=== PATIENT | female | born 1965 | race Hispanic/Latino ===

== ENCOUNTER 2021-01-03 14:43 | Emergency (ER) | payer SELFPAY ==
[~2021-01-03] VITALS: Ht 154.9 cm; Wt 95.3 kg
[2021-01-03 15:11] LABS: BASOPHILS % (AUTO) 0.7 % (0.0-5.0); EOSINOPHILS % (AUTO) 1.9 % (0.0-8.0); HEMATOCRIT 40.2 % (36-48); LYMPHOCYTES % (AUTO) 25.9 % (21.0-51.0); MEAN CORPUSCULAR HEMOGLOBIN 29.7 pg (27.0-33.0); MEAN CORPUSCULAR HGB CONC 32.3 g/dL (32.0-36.0); MONOCYTES % (AUTO) 8.6 % (3.0-13.0); NEUTROPHILS % (AUTO) 62.2 % (40.0-77.0); PLATELET COUNT (AUTO) 266 K/uL (130-400); RED BLOOD CELL COUNT(AUTO) 4.37 MIL/uL (4.00-5.50); RED CELL DISTRIBUTION WIDTH 13.3 % (11.0-15.5); WHITE BLOOD COUNT (AUTO) 13.4 K/uL (4.8-10.8)
[2021-01-03 15:25] LABS: CREATININE 0.8 mg/dL (0.5-1.5); POTASSIUM 3.7 mmol/L (3.5-5.1)
[2021-01-03 15:29] LABS: ALBUMIN 3.5 g/dL (3.5-5.0); BILIRUBIN,TOTAL 0.2 mg/dL (0.2-1.0); TOTAL PROTEIN, SERUM 7.3 g/dL (6.0-8.3)
[2021-01-03] MEDS ORDERED: MECLIZINE HCL 25 MG TABLET PO ONE (15:30)
[2021-01-03] MEDS ORDERED: MECL-226 PO (15:50)
[2021-01-03] MEDS ORDERED: CORTSUSP OT (16:06)
[2021-01-03 16:29] VITALS: BP 136/67
== END 2021-01-03 16:30 | disposition home or self-care (01) ==
LOC: EDH 15:05
DX: H81.393 Other peripheral vertigo, bilateral (principal); Z98.890 Other specified postprocedural states; H66.92 Otitis media, unspecified, left ear; Z79.899 Other long term (current) drug therapy
CPT/HCPCS: 36415; 70450; 80053; 85025

== ENCOUNTER 2021-10-15 15:49 | Emergency (ER) | payer OTHER ==
[~2021-10-15] VITALS: Ht 154.9 cm; Wt 99.1 kg
[~2021-10-15 15:49] MED LIST: CORTSUSP OT; MECL-226 PO
[2021-10-15 15:55] VITALS: BP 130/63
[2021-10-15] MEDS ORDERED: HYDROCODONE/ACETAMINOPHEN 5/325 MG TAB PO ONE (16:00)
[2021-10-15] MEDS ORDERED: ACET-2247 PO (17:36)
== END 2021-10-15 17:47 | disposition home or self-care (01) ==
LOC: EDH 15:49
DX: M25.552 Pain in left hip (principal); M79.605 Pain in left leg; E11.9 Type 2 diabetes mellitus without complications; Z98.890 Other specified postprocedural states; Z90.49 Acquired absence of other specified parts of digestive tract; Z79.899 Other long term (current) drug therapy
CPT/HCPCS: 73502; 93971

== ENCOUNTER 2023-02-05 10:17 | Emergency (ER) | payer OTHER ==
[~2023-02-05] VITALS: Ht 154.9 cm; Wt 90.7 kg
[~2023-02-05 10:17] MED LIST changes: +ACET-2247 PO
[2023-02-05 10:54] VITALS: O2SAT 99
[2023-02-05] MEDS ORDERED: CLOT15CR5 TP (12:03)
[2023-02-05] MEDS ORDERED: TERB250T89 PO (12:03)
[2023-02-05] MEDS ORDERED: METF-445 PO (12:11)
[2023-02-05 12:36] VITALS: BP 128/66; PULSE 65; RESP 17
== END 2023-02-05 12:42 | disposition home or self-care (01) ==
LOC: EDH 10:17
DX: B35.3 Tinea pedis (principal); E11.9 Type 2 diabetes mellitus without complications; E66.9 Obesity, unspecified; Z90.49 Acquired absence of other specified parts of digestive tract; Z90.710 Acquired absence of both cervix and uterus; Z98.890 Other specified postprocedural states; Z79.84 Long term (current) use of oral hypoglycemic drugs; Z79.899 Other long term (current) drug therapy; Z88.6 Allergy status to analgesic agent